=== PATIENT | female | born 1990 | race Caucasian/White ===

== ENCOUNTER → 2016-07-19 | Outpatient (CLI) | payer OTHER ==
[2016-07-19 09:41] LABS: CHLORIDE,CL 107 mmol/L (98-110); SODIUM,NA 138 mmol/L (136-146)
== END ==
LOC: MW.CHOBGYN 08:55
PROVIDERS: ATTEND Obstetrics & Gynecology
DX: R42 Dizziness and giddiness (principal)
CPT/HCPCS: 36415; 80048; 81001; 82950; 85027

== ENCOUNTER → 2016-08-13 | Outpatient (CLI) | payer OTHER | LOC: MW.CHOBGYN 08:53 | PROVIDERS: ATTEND Obstetrics & Gynecology | DX: Z34.90 Encounter for supervision of normal pregnancy, unspecified, unspecified trimester (principal) | CPT/HCPCS: 81003 ==

== ENCOUNTER → 2016-09-10 | Outpatient (CLI) | payer OTHER | LOC: MW.CHOBGYN 15:24 | PROVIDERS: ATTEND Obstetrics & Gynecology | DX: Z34.90 Encounter for supervision of normal pregnancy, unspecified, unspecified trimester (principal) | CPT/HCPCS: 81003 ==

== ENCOUNTER → 2016-09-24 | Outpatient (CLI) | payer OTHER | LOC: MW.CHOBGYN 15:40 | PROVIDERS: ATTEND Obstetrics & Gynecology | DX: Z34.90 Encounter for supervision of normal pregnancy, unspecified, unspecified trimester (principal) | CPT/HCPCS: 87081 ==

== ENCOUNTER → 2016-10-12 | Outpatient (CLI) | payer OTHER | LOC: MW.CHOBGYN 15:27 | PROVIDERS: ATTEND Obstetrics & Gynecology | DX: Z34.90 Encounter for supervision of normal pregnancy, unspecified, unspecified trimester (principal) | CPT/HCPCS: 81003 ==

== ENCOUNTER 2016-10-23 21:43 | Inpatient (IN) | payer OTHER ==
[2016-10-23] MEDS ORDERED: Sodium Chloride 0.9% 10 ML Syringe FLUSH PRN (22:27)
[2016-10-23] MEDS ORDERED: Lidocaine 1% 50 ML MDV INJECT PRN (22:27)
[2016-10-23] MEDS ORDERED: Misoprostol 200 MCG Tab PO PRN (22:27)
[2016-10-23] MEDS ORDERED: Nalbuphine 10 MG/1 ML Vial IVPUSH PRN (22:27)
[2016-10-23] MEDS ORDERED: Carboprost Tromethamine 250 MCG/1 ML Amp IM PRN (22:27)
[2016-10-23] MEDS ORDERED: Butorphanol 1 MG/ML SDV IVPUSH PRN (22:27)
[2016-10-23] MEDS ORDERED: Sodium Chloride 0.9% 2.5 ML Syringe FLUSH PRN (22:27)
[2016-10-23] MEDS ORDERED: Methylergonovine 0.2 MG/1 ML Amp IM PRN (22:27)
[2016-10-23] MEDS ORDERED: Water For Irrigation,Sterile 1,000 ML Container IRR PRN (22:27)
[2016-10-23] MEDS ORDERED: Oxytocin/Lactated Ringers 30 UNIT/500 ML BAG IV SCH (22:30)
[2016-10-23] MEDS: Lactated Ringers 1,000 ML IV SCH (22:47)
--- NOTE | 2016-10-23 23:24 | PCM.LDHP ---
L&D History of Present Illness - General Date of Service: 10/23/16 Admit Problem/Dx: Patient Status Order with Admit Dx/Problem 10/23/16 22:02 Patient Status [ADT] Routine 10/23/16 22:28 Patient Status [ADT] Routine Admission Diagnosis/Problem Admission Diagnosis/Problem - planned Source of Information: Patient History Limitations: Reports: No Limitations - History of Present Illness Improves with: Reports: None Worsens with: Reports: None Associated Symptoms: Reports: N - Related Data Allergies/Adverse Reactions: Allergies Allergy/AdvReac Type Severity Reaction Status Date / Time Penicillins Allergy Swelling Verified 09/09/13 09:59 Sulfa (Sulfonamide Allergy Redness Verified 09/09/13 09:59 Antibiotics) Home Medications: Home Meds Citalopram Hydrobromide [Celexa] 30 mg PO DAILY 09/09/13 [History] ClonazePAM [KlonoPIN] 0.5 mg PO BID PRN 09/09/13 [History] Norgestimate-Ethinyl Estradiol [Ortho Tri-Cyclen] 1 each PO DAILY 09/09/13 [ History] Past Medical History - Past Health History Medical/Surgical History: Denies 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: Social & Family History - Family History Family Medical History: Noncontributory - Tobacco Use Smoking Status *Q: Never Smoker Second Hand Smoke Exposure: No - Alcohol Use Days Per Week of Alcohol Use: 0 - Recreational Drug Use Recreational Drug Use: No H&P Review of Systems - Review of Systems: Review Of Systems: See Below General: Reports: No Symptoms HEENT: Reports: No Symptoms Pulmonary: Reports: No Symptoms Cardiovascular: Reports: No Symptoms Gastrointestinal: Reports: No Symptoms Genitourinary: Reports: No Symptoms Musculoskeletal: Reports: No Symptoms Skin: Reports: No Symptoms Psychiatric: Reports: No Symptoms Neurological: Reports: No Symptoms Hematologic/Lymphatic: Reports: No Symptoms Immunologic: Reports: No Symptoms L&D Exam - Exam Exam: See Below - Vital Signs Weight: 67.9 kg - OB Specific Fundal Height In cm: 38 Contraction Intensity: Mild to Moderate Movement: Active Heart Tones: Present Presentation: Vertex - Escobar Score Escobar Score Cervix Position: Midposition Escobar Score Consistency: Soft Escobar Score Effacement: 31-50% Escobar Score Dilation: 1-2 cm - Patient Data Lab Results last 24 hrs: Laboratory Results - last 24 hr 10/23/16 10/23/16 Range/Units 22:42 22:42 WBC 12.36 H (4.0-11.0) K/uL RBC 4.19 L (4.30-5.90) M/uL Hgb 12.2 (12.0-16.0) g/dL Hct 37.7 (36.0-46.0) % MCV 90.0 (80.0-98.0) fL MCH 29.1 (27.0-32.0) pg MCHC 32.4 (31.0-37.0) g/dL RDW Std Deviation 44.1 (28.0-62.0) fl RDW Coeff of Jayro 14 (11.0-15.0) % Plt Count 268 (150-400) K/uL MPV 11.30 (7.40-12.00) fL Nucleated RBC % 0.0 /100WBC Nucleated RBCs # 0 K/uL Blood Type O POSITIVE Result Diagrams: 10/23/16 22:42 Problem List Initiated/Reviewed/Updated: Yes Orders Last 24hrs: Active Orders 24 hr Category Date Time Status Patient Status [ADT] Routine ADT 10/23/16 22:02 Active Patient Status [ADT] Routine ADT 10/23/16 22:28 Active Heart Tones [RC] CONTINUOUS Care 10/23/16 22:28 Active Non Stress Test [RC] PER UNIT ROUTINE Care 10/23/16 22:02 Active Non Stress Test [RC] PER UNIT ROUTINE Care 10/23/16 22:28 Active May Shower [RC] ASDIRECTED Care 10/23/16 22:28 Active Notify Provider [RC] PRN Care 10/23/16 22:28 Active Up ad Kelsie [RC] ASDIRECTED Care 10/23/16 22:02 Active Up ad Kelsie [RC] ASDIRECTED Care 10/23/16 22:28 Active Vaginal Exam [RC] Click To Edit Care 10/23/16 22:02 Active Vaginal Exam [RC] PRN Care 10/23/16 22:28 Active Vital Signs [RC] PER UNIT ROUTINE Care 10/23/16 22:02 Active Vital Signs [RC] PER UNIT ROUTINE Care 10/23/16 22:28 Active Clear Liquid Diet [DIET] Diet 10/24/16 Breakfast Active AMNISURE RUPTURE MEMBRAN [BF] Routine Lab 10/23/16 21:46 Ordered TYPE AND SCREEN [BBK] Routine Lab 10/23/16 22:42 Results Butorphanol [Stadol] Med 10/23/16 22:27 Active 1 mg IVPUSH Q1H PRN Carboprost Tromethamine [Hemabate DS] Med 10/23/16 22:27 Active 250 mcg IM ASDIRECTED PRN Lactated Ringers [Ringers, Lactated] 1,000 ml Med 10/23/16 22:30 Active IV ASDIRECTED Lidocaine 1% [Xylocaine 1%] Med 10/23/16 22:27 Active 50 ml INJECT .ONCE PRN Methylergonovine [Methergine] Med 10/23/16 22:27 Active 0.2 mg IM ASDIRECTED PRN Misoprostol [Cytotec] Med 10/23/16 22:27 Active 200 mcg PO .ONCE PRN Nalbuphine [Nubain] Med 10/23/16 22:27 Active 10 mg IVPUSH Q1H PRN Sodium Chloride 0.9% [Saline Flush] Med 10/23/16 22:27 Active 10 ml FLUSH ASDIRECTED PRN Sodium Chloride 0.9% [Saline Flush] Med 10/23/16 22:27 Active 2.5 ml FLUSH ASDIRECTED PRN Water For Irrigation,Sterile [Sterile Water for Med 10/23/16 22:27 Active Irrigation] 1,000 ml IRR ASDIRECTED PRN Scalp Electrode [WOMSER] Per Unit Routine Oth 10/23/16 22:28 Ordered Peripheral IV Insertion Adult [OM.PC] Routine Oth 10/23/16 22:28 Ordered Resuscitation Status Routine Resus Stat 10/23/16 22:02 Ordered Medication Orders Butorphanol Tartrate (Stadol) 1 mg IVPUSH Q1H PRN PRN Reason: Pain Carboprost Tromethamine (Hemabate Ds) 250 mcg IM ASDIRECTED PRN PRN Reason: Post Hemorrhage Lactated Ringer's (Ringers, Lactated) 1,000 mls @ 150 mls/hr IV ASDIRECTED JORGE Last Admin: 10/23/16 22:47 Dose: 150 mls/hr Lidocaine HCl (Xylocaine 1%) 50 ml INJECT .ONCE PRN PRN Reason: Laceration repair Methylergonovine Maleate (Methergine) 0.2 mg IM ASDIRECTED PRN PRN Reason: Post Hemorrhage Misoprostol (Cytotec) 200 mcg PO .ONCE PRN PRN Reason: Post Hemorrhage Nalbuphine HCl (Nubain) 10 mg IVPUSH Q1H PRN PRN Reason: Pain (severe 7-10) Stop: 10/24/16 00:28 Sodium Chloride (Saline Flush) 10 ml FLUSH ASDIRECTED PRN PRN Reason: Keep Vein Open Sodium Chloride (Saline Flush) 2.5 ml FLUSH ASDIRECTED PRN PRN Reason: Keep Vein Open Sterile Water (Sterile Water For Irrigation) 1,000 ml IRR ASDIRECTED PRN PRN Reason: delivery Assessment/Plan Comment:: Term SROM admit.
[2016-10-24] MEDS: Lactated Ringers 1,000 ML IV SCH ×3 (02:30→11:12)
[2016-10-24] MEDS ORDERED: fentaNYL 100 MCG/2 ML SDV ONE (04:14)
[2016-10-24] MEDS ORDERED: Ropivacaine HCl/PF 0 ML ONE (04:14)
--- NOTE | 2016-10-24 04:52 | PCM.PREANE ---
Preanesthetic Assessment - Anesthesia/Transfusion/Family Hx Anesthesia History: Prior Anesthesia Without Reaction (Epidural only - no GA) Family History of Anesthesia Reaction: No Transfusion History: No Prior Transfusion(s) - Review of Systems General: No Symptoms Pulmonary: No Symptoms Cardiovascular: No Symptoms Gastrointestinal: No symptoms Neurological: No Symptoms Other: Reports: None - Physical Assessment NPO Status Date: 10/24/16 NPO Status Time: 04:49 (sips/chips) Blood Pressure: 106/52 Height: 5 ft 7.5 in Weight: 149 lb 11.102 oz ASA Class: 1 Mental Status: Alert & Oriented x3 Airway Class: Mallampati = 2 Dentition: Reports: Normal Dentition Thyro-Mental Finger Breadths: 3 Mouth Opening Finger Breadths: 3 ROM/Head Extension: Full Lungs: Clear to auscultation, Normal respiratory effort Cardiovascular: Regular Rate, Regular Rhythm - Lab Values: Laboratory Last Values WBC 12.36 K/uL (4.0-11.0) H 10/23/16 22:42 RBC 4.19 M/uL (4.30-5.90) L 10/23/16 22:42 Hgb 12.2 g/dL (12.0-16.0) 10/23/16 22:42 Hct 37.7 % (36.0-46.0) 10/23/16 22:42 MCV 90.0 fL (80.0-98.0) 10/23/16 22:42 MCH 29.1 pg (27.0-32.0) 10/23/16 22:42 MCHC 32.4 g/dL (31.0-37.0) 10/23/16 22:42 RDW Std Deviation 44.1 fl (28.0-62.0) 10/23/16 22:42 RDW Coeff of Jayro 14 % (11.0-15.0) 10/23/16 22:42 Plt Count 268 K/uL (150-400) 10/23/16 22:42 MPV 11.30 fL (7.40-12.00) 10/23/16 22:42 Nucleated RBC % 0.0 /100WBC 10/23/16 22:42 Nucleated RBCs # 0 K/uL 10/23/16 22:42 Blood Type O POSITIVE 10/23/16 22:42 Antibody Screen NEGATIVE 10/23/16 22:42 - Allergies Allergies/Adverse Reactions: Allergies Allergy/AdvReac Type Severity Reaction Status Date / Time Penicillins Allergy Swelling Verified 09/09/13 09:59 Sulfa (Sulfonamide Allergy Redness Verified 09/09/13 09:59 Antibiotics) - Blood Blood Available: No Product(s) Available: None - Anesthesia Plan Free Text/Narrative:: Labor Epidural - Acknowledgements Anesthesia Type Planned: Epidural Pt an Appropriate Candidate for the Planned Anesthesia: Yes Alternatives and Risks of Anesthesia Discussed w Pt/Guardian: Yes Pt/Guardian Understands and Agrees with Anesthesia Plan: Yes PreAnesthesia Questionnaire - Past Health History Medical/Surgical History: Denies 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 History: Reports: Other (See Below) (pt states she was told with her last epidural that 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) - SUBSTANCE USE Smoking Status *Q: Never Smoker Second Hand Smoke Exposure: No Days Per Week of Alcohol Use: 0 Recreational Drug Use History: No - HOME MEDS Home Medications: Home Meds Citalopram Hydrobromide [Celexa] 30 mg PO DAILY 09/09/13 [History] ClonazePAM [KlonoPIN] 0.5 mg PO BID PRN 09/09/13 [History] Norgestimate-Ethinyl Estradiol [Ortho Tri-Cyclen] 1 each PO DAILY 09/09/13 [ History] - CURRENT (IN HOUSE) MEDS Current Meds: Current Medications Butorphanol Tartrate (Stadol) 1 mg IVPUSH Q1H PRN PRN Reason: Pain Carboprost Tromethamine (Hemabate Ds) 250 mcg IM ASDIRECTED PRN PRN Reason: Post Hemorrhage Lactated Ringer's (Ringers, Lactated) 1,000 mls @ 150 mls/hr IV ASDIRECTED JORGE Last Admin: 10/24/16 04:25 Dose: 150 mls/hr Lidocaine HCl (Xylocaine 1%) 50 ml INJECT .ONCE PRN PRN Reason: Laceration repair Methylergonovine Maleate (Methergine) 0.2 mg IM ASDIRECTED PRN PRN Reason: Post Hemorrhage Misoprostol (Cytotec) 200 mcg PO .ONCE PRN PRN Reason: Post Hemorrhage Sodium Chloride (Saline Flush) 10 ml FLUSH ASDIRECTED PRN PRN Reason: Keep Vein Open Sodium Chloride (Saline Flush) 2.5 ml FLUSH ASDIRECTED PRN PRN Reason: Keep Vein Open Sterile Water (Sterile Water For Irrigation) 1,000 ml IRR ASDIRECTED PRN PRN Reason: delivery Discontinued Medications Fentanyl (Sublimaze) Confirm Administered Dose 100 mcg .ROUTE .STK-MED ONE Stop: 10/24/16 04:15 Oxytocin/Lactated Ringer's (Pitocin In Lr 30 Units/500 Ml) 30 unit in 500 mls @ 999 mls/hr IV TITRATE JORGE; 999 MUNITS/MIN PRN Reason: Protocol Stop: 10/23/16 23:01 Ropivacaine (Naropin 0.2%) Confirm Administered Dose 100 mls @ as directed .ROUTE .STK-MED ONE Stop: 10/24/16 04:15 Nalbuphine HCl (Nubain) 10 mg IVPUSH Q1H PRN PRN Reason: Pain (severe 7-10) Stop: 10/24/16 00:28
--- NOTE | 2016-10-24 08:20 | PCM.PNLD ---
Labor Progress Note - VS & Meds Vital Signs: Last Vital Signs Temp Pulse Resp BP 106/52 L 10/24/16 04:52 Pulse Ox Active Medications: Current Medications Butorphanol Tartrate (Stadol) 1 mg IVPUSH Q1H PRN PRN Reason: Pain Carboprost Tromethamine (Hemabate Ds) 250 mcg IM ASDIRECTED PRN PRN Reason: Post Hemorrhage Lactated Ringer's (Ringers, Lactated) 1,000 mls @ 150 mls/hr IV ASDIRECTED JORGE Last Admin: 10/24/16 04:25 Dose: 150 mls/hr Lidocaine HCl (Xylocaine 1%) 50 ml INJECT .ONCE PRN PRN Reason: Laceration repair Methylergonovine Maleate (Methergine) 0.2 mg IM ASDIRECTED PRN PRN Reason: Post Hemorrhage Misoprostol (Cytotec) 200 mcg PO .ONCE PRN PRN Reason: Post Hemorrhage Sodium Chloride (Saline Flush) 10 ml FLUSH ASDIRECTED PRN PRN Reason: Keep Vein Open Sodium Chloride (Saline Flush) 2.5 ml FLUSH ASDIRECTED PRN PRN Reason: Keep Vein Open Sterile Water (Sterile Water For Irrigation) 1,000 ml IRR ASDIRECTED PRN PRN Reason: delivery Discontinued Medications Fentanyl (Sublimaze) Confirm Administered Dose 100 mcg .ROUTE .STK-MED ONE Stop: 10/24/16 04:15 Oxytocin/Lactated Ringer's (Pitocin In Lr 30 Units/500 Ml) 30 unit in 500 mls @ 999 mls/hr IV TITRATE JORGE; 999 MUNITS/MIN PRN Reason: Protocol Stop: 10/23/16 23:01 Ropivacaine (Naropin 0.2%) Confirm Administered Dose 100 mls @ as directed .ROUTE .STK-MED ONE Stop: 10/24/16 04:15 Nalbuphine HCl (Nubain) 10 mg IVPUSH Q1H PRN PRN Reason: Pain (severe 7-10) Stop: 10/24/16 00:28 - Uterine Contractions Uterine Monitoring Mode: External [place] Contraction Intensity: Moderate Uterine Resting Tone: Soft - Monitoring Monitor Mode: External Ultrasound Heart Rate (FHR) Variability: Minimal (0-5 bpm) Accelerations: Present, 15x15 Decelerations: None Strip Review: Category I - Vaginal Exam Dilation (cm): 4 Effacement (Percent): 70 Station: -2 Cervical Position: Anterior - Labor Progress (Free Text) Labor Progress: Will Start the pt on pitocin aggumentation as per protocol.
[2016-10-24] MEDS ORDERED: Ropivacaine HCl/PF 100 ML ONE (08:58)
[2016-10-24] MEDS ORDERED: Terbutaline 1 MG/ML SDV SUBCUT PRN (09:03)
[2016-10-24] MEDS ORDERED: Oxytocin/Lactated Ringers 30 UNIT/500 ML BAG IV SCH (09:15)
[2016-10-24] MEDS ORDERED: oxyCODONE 5 MG Tab PO PRN (12:23)
[2016-10-24] MEDS ORDERED: Lanolin 100% Cream 7 GM Tube TOP PRN (12:23)
[2016-10-24] MEDS ORDERED: Witch Hazel Medicated Pads 40/Jar TOP PRN (12:23)
[2016-10-24] MEDS ORDERED: Ibuprofen 800 MG Tab PO PRN (12:23)
[2016-10-24] MEDS ORDERED: Docusate Sodium 100 MG Cap PO PRN (12:23)
[2016-10-24] MEDS ORDERED: Benzocaine/Menthol 20%-0.5% Spray 78 GM Cannister TOP PRN (12:23)
[2016-10-24] MEDS ORDERED: Acetaminophen 500 MG Tab PO PRN ×2 (12:23)
[2016-10-24] MEDS ORDERED: Ibuprofen 400 MG Tab PO PRN (12:23)
[2016-10-24] MEDS ORDERED: Bisacodyl 10 MG Supp RECTAL PRN (12:23)
--- NOTE | 2016-10-24 12:56 | OR ---
SURGEON: Santiago Combs MD DATE OF PROCEDURE: 10/24/2016 Mrs. Montelongo is 26 years old. She is para 1-0-0-1. She is followed in our clinic in this primarily by me. She had no complication. Her GBS status was negative. She was admitted last night with spontaneous rupture of the membrane that was confirmed at the time of the admission. She was dilated to 1 cm, and she was 70% vertex and -3. The patient started labor on her own and she initially started to progress slowly. Eventually, she became 3, 90% vertex, -3. She had epidural anesthesia for labor analgesia and the patient was continued to progress without aid, without augmentation, or stimulation. She became complete complete around 11:30 of 10/24 and she was able to accomplish normal spontaneous vaginal delivery of a female fetus. score reported to be 8 and 9 and the weight is not available. The placenta delivered spontaneous, complete, and intact without any problem. There was no perineal tear, no perineal laceration, and there is no labial laceration. There was no need for episiotomy. The perineum was intact. Estimated blood loss was 250 to 300 mL. No complication in this . FLORENTIN / SAUL /[id number]
--- NOTE | 2016-10-24 16:44 | PCM48HPAN ---
Post Anesthesia Note - EVALUATION WITHIN 48HRS OF ANESTHETIC Vital Signs in Normal Range: Yes Patient Participated in Evaluation: Yes Respiratory Function Stable: Yes Airway Patent: Yes Cardiovascular Function Stable: Yes Hydration Status Stable: Yes Pain Control Satisfactory: Yes Nausea and Vomiting Control Satisfactory: Yes Mental Status Recovered: Yes
[2016-10-25 09:03] VITALS: BP 101/61
--- NOTE | 2016-10-25 11:54 | PCM.PNPP ---
- General Info Date of Service: 10/25/16 Functional Status: Reports: pain controlled - Review of Systems General: Reports: No Symptoms HEENT: Reports: no symptoms Pulmonary: Reports: no symptoms Cardiovascular: Reports: No Symptoms Gastrointestinal: Reports: No symptoms Genitourinary: Reports: no symptoms Musculoskeletal: Reports: no symptoms Skin: Reports: no symptoms Neurological: Reports: No Symptoms Psychiatric: Reports: no symptoms - General Info Date of Service: 10/25/16 - Patient Data Vital Signs - most recent: Last Vital Signs Temp 36.8 C 10/25/16 07:30 Pulse 72 10/25/16 07:30 Resp 16 10/25/16 07:30 BP 101/61 10/25/16 07:30 Pulse Ox 97 10/25/16 07:30 Weight - most recent: 67.9 kg Lab Results - last 24 hrs: Laboratory Results - last 24 hr 10/25/16 Range/Units 06:05 Hgb 9.9 L (12.0-16.0) g/dL Hct 30.5 L (36.0-46.0) % Med Orders - Current: Current Medications Acetaminophen (Tylenol Extra Strength) 500 mg PO Q4H PRN PRN Reason: Pain Acetaminophen (Tylenol Extra Strength) 1,000 mg PO Q4H PRN PRN Reason: Pain Benzocaine/Menthol (Dermoplast Pain Relief 20%-0.5% [place]) 78 gm TOP ASDIRECTED PRN PRN Reason: Perineal Comfort Measure Bisacodyl (Dulcolax) 10 mg RECTAL .ONCE PRN PRN Reason: Constipation Butorphanol Tartrate (Stadol) 1 mg IVPUSH Q1H PRN PRN Reason: Pain Carboprost Tromethamine (Hemabate Ds) 250 mcg IM ASDIRECTED PRN PRN Reason: Post Hemorrhage Docusate Sodium (Colace) 100 mg PO BID PRN PRN Reason: Constipation Emollient Ointment (Lansinoh Hpa) 0 gm TOP ASDIRECTED PRN PRN Reason: Sore Nipples Lactated Ringer's (Ringers, Lactated) 1,000 mls @ 150 mls/hr IV ASDIRECTED JORGE Last Admin: 10/24/16 11:12 Dose: 150 mls/hr Oxytocin/Lactated Ringer's (Pitocin In Lr 30 Units/500 Ml) 30 unit in 500 mls @ 2 mls/hr IV TITRATE JORGE; 2 MUNITS/MIN PRN Reason: Protocol Last Admin: 10/24/16 12:39 Dose: 500 munits/min, 500 mls/hr Ibuprofen (Motrin) 400 mg PO Q4H PRN PRN Reason: Pain Ibuprofen (Motrin) 800 mg PO Q6H PRN PRN Reason: Pain Last Admin: 10/24/16 20:30 Dose: 800 mg Lidocaine HCl (Xylocaine 1%) 50 ml INJECT .ONCE PRN PRN Reason: Laceration repair Methylergonovine Maleate (Methergine) 0.2 mg IM ASDIRECTED PRN PRN Reason: Post Hemorrhage Misoprostol (Cytotec) 200 mcg PO .ONCE PRN PRN Reason: Post Hemorrhage Oxycodone HCl (Oxycodone) 5 mg PO Q2H PRN PRN Reason: Pain Sodium Chloride (Saline Flush) 10 ml FLUSH ASDIRECTED PRN PRN Reason: Keep Vein Open Sodium Chloride (Saline Flush) 2.5 ml FLUSH ASDIRECTED PRN PRN Reason: Keep Vein Open Sterile Water (Sterile Water For Irrigation) 1,000 ml IRR ASDIRECTED PRN PRN Reason: delivery Last Admin: 10/24/16 12:39 Dose: 1,000 ml Terbutaline Sulfate (Brethine) 0.25 mg SUBCUT ASDIRECTED PRN PRN Reason: Tacysystole Witch Kamla (Tucks) 1 pad TOP ASDIRECTED PRN PRN Reason: comfort care Discontinued Medications Fentanyl (Sublimaze) Confirm Administered Dose 100 mcg .ROUTE .STK-MED ONE Stop: 10/24/16 04:15 Last Admin: 10/25/16 09:09 Dose: Not Given Oxytocin/Lactated Ringer's (Pitocin In Lr 30 Units/500 Ml) 30 unit in 500 mls @ 999 mls/hr IV TITRATE JORGE; 999 MUNITS/MIN PRN Reason: Protocol Stop: 10/23/16 23:01 Ropivacaine (Naropin 0.2%) Confirm Administered Dose 100 mls @ as directed .ROUTE .STK-MED ONE Stop: 10/24/16 04:15 Last Admin: 10/25/16 09:09 Dose: Not Given Ropivacaine (Naropin 0.2%) Confirm Administered Dose 100 mls @ as directed .ROUTE .STK-MED ONE Stop: 10/24/16 08:59 Last Admin: 10/25/16 09:09 Dose: Not Given Nalbuphine HCl (Nubain) 10 mg IVPUSH Q1H PRN PRN Reason: Pain (severe 7-10) Stop: 10/24/16 00:28 - Infant Interaction Support Person: - Recovery Exam Fundal Tone: Firm Fundal Level: 1 Fingerbreadths Below Umbilicus Fundal Placement: Midline Lochia Amount: Small Lochia Color: Rubra/Red Perineum Description: Intact, Minimal Bruising/Swelling Episiotomy/Laceration: None Bladder Status: Voiding Urinary Elimination: Voided - Exam General: alert, oriented HEENT: Pupils equal Neck: supple Lungs: Clear to auscultation, Normal respiratory effort Cardiovascular: Regular Rate, Regular Rhythm Abdomen: bowel sounds present, soft, no tenderness, no distension Extremities: no edema Skin: warm, dry, intact Wound/Incisions: healing well Neurological: no new focal deficit Psy/Mental Status: alert, normal affect, normal mood - Problem List Review Problem List Initiated/Reviewed/Updated: Yes - My Orders Last 24 Hours: My Active Orders 10/24/16 12:23 Patient Status [ADT] Routine May Shower [RC] ASDIRECTED Up ad Kelsie [RC] ASDIRECTED Vital Signs [RC] PER UNIT ROUTINE Acetaminophen [Tylenol Extra Strength] 1,000 mg PO Q4H PRN Acetaminophen [Tylenol Extra Strength] 500 mg PO Q4H PRN Benzocaine/Menthol [Dermoplast Pain Relief 20%-0.5% [place]] 78 gm TOP ASDIRECTED PRN Bisacodyl [Dulcolax] 10 mg RECTAL .ONCE PRN Docusate Sodium [Colace] 100 mg PO BID PRN Ibuprofen [Motrin] 400 mg PO Q4H PRN Ibuprofen [Motrin] 800 mg PO Q6H PRN Lanolin [Lansinoh HPA] See Dose Instructions TOP ASDIRECTED PRN Witch Kamla [Tucks] 1 pad TOP ASDIRECTED PRN oxyCODONE 5 mg PO Q2H PRN Assess Lochia [WOMSER] Per Unit Routine Assess Uterine Involution [WOMSER] Per Unit Routine Peripheral IV Discontinue [OM.PC] Routine 10/25/16 Lunch Regular Diet [DIET] - Plan Plan:: Term SROM admit.
--- NOTE | 2016-10-25 11:55 | PCM.DCSUM1 ---
Discharge Summary - Discharge Data Discharge Date: 10/25/16 Discharge Disposition: Home, Self-Care 01 Condition: Good - Patient Instructions Diet: Usual Diet as Tolerated Activity: As Tolerated Showering/Bathing: May Shower Notify Provider of: Fever, Increased Pain, Swelling and Redness, Nausea and/or Vomiting - Discharge Plan Home Medications: Home Meds Citalopram Hydrobromide [Celexa] 30 mg PO DAILY 09/09/13 [History] ClonazePAM [KlonoPIN] 0.5 mg PO BID PRN 09/09/13 [History] Norgestimate-Ethinyl Estradiol [Ortho Tri-Cyclen] 1 each PO DAILY 09/09/13 [ History] Referrals: [facility] [Outside] Santiago Combs MD [Physician] - 12/06/16 9:30 am - General Info Date of Service: 10/25/16 Functional Status: Reports: pain controlled - Review of Systems General: Reports: No Symptoms HEENT: Reports: no symptoms Pulmonary: Reports: no symptoms Cardiovascular: Reports: No Symptoms Gastrointestinal: Reports: No symptoms Genitourinary: Reports: no symptoms Musculoskeletal: Reports: no symptoms Skin: Reports: no symptoms Neurological: Reports: No Symptoms Psychiatric: Reports: no symptoms - Patient Data Vitals - Most Recent: Last Vital Signs Temp 36.8 C 10/25/16 07:30 Pulse 72 10/25/16 07:30 Resp 16 10/25/16 07:30 BP 101/61 10/25/16 07:30 Pulse Ox 97 10/25/16 07:30 Weight - Most Recent: 67.9 kg Lab Results - Last 24 hrs: Laboratory Results - last 24 hr 10/25/16 Range/Units 06:05 Hgb 9.9 L (12.0-16.0) g/dL Hct 30.5 L (36.0-46.0) % Med Orders - Current: Current Medications Acetaminophen (Tylenol Extra Strength) 500 mg PO Q4H PRN PRN Reason: Pain Acetaminophen (Tylenol Extra Strength) 1,000 mg PO Q4H PRN PRN Reason: Pain Benzocaine/Menthol (Dermoplast Pain Relief 20%-0.5% [place]) 78 gm TOP ASDIRECTED PRN PRN Reason: Perineal Comfort Measure Bisacodyl (Dulcolax) 10 mg RECTAL .ONCE PRN PRN Reason: Constipation Butorphanol Tartrate (Stadol) 1 mg IVPUSH Q1H PRN PRN Reason: Pain Carboprost Tromethamine (Hemabate Ds) 250 mcg IM ASDIRECTED PRN PRN Reason: Post Hemorrhage Docusate Sodium (Colace) 100 mg PO BID PRN PRN Reason: Constipation Emollient Ointment (Lansinoh Hpa) 0 gm TOP ASDIRECTED PRN PRN Reason: Sore Nipples Lactated Ringer's (Ringers, Lactated) 1,000 mls @ 150 mls/hr IV ASDIRECTED JORGE Last Admin: 10/24/16 11:12 Dose: 150 mls/hr Oxytocin/Lactated Ringer's (Pitocin In Lr 30 Units/500 Ml) 30 unit in 500 mls @ 2 mls/hr IV TITRATE JORGE; 2 MUNITS/MIN PRN Reason: Protocol Last Admin: 10/24/16 12:39 Dose: 500 munits/min, 500 mls/hr Ibuprofen (Motrin) 400 mg PO Q4H PRN PRN Reason: Pain Ibuprofen (Motrin) 800 mg PO Q6H PRN PRN Reason: Pain Last Admin: 10/24/16 20:30 Dose: 800 mg Lidocaine HCl (Xylocaine 1%) 50 ml INJECT .ONCE PRN PRN Reason: Laceration repair Methylergonovine Maleate (Methergine) 0.2 mg IM ASDIRECTED PRN PRN Reason: Post Hemorrhage Misoprostol (Cytotec) 200 mcg PO .ONCE PRN PRN Reason: Post Hemorrhage Oxycodone HCl (Oxycodone) 5 mg PO Q2H PRN PRN Reason: Pain Sodium Chloride (Saline Flush) 10 ml FLUSH ASDIRECTED PRN PRN Reason: Keep Vein Open Sodium Chloride (Saline Flush) 2.5 ml FLUSH ASDIRECTED PRN PRN Reason: Keep Vein Open Sterile Water (Sterile Water For Irrigation) 1,000 ml IRR ASDIRECTED PRN PRN Reason: delivery Last Admin: 10/24/16 12:39 Dose: 1,000 ml Terbutaline Sulfate (Brethine) 0.25 mg SUBCUT ASDIRECTED PRN PRN Reason: Tacysystole Witch Kamla (Tucks) 1 pad TOP ASDIRECTED PRN PRN Reason: comfort care Discontinued Medications Fentanyl (Sublimaze) Confirm Administered Dose 100 mcg .ROUTE .STK-MED ONE Stop: 10/24/16 04:15 Last Admin: 10/25/16 09:09 Dose: Not Given Oxytocin/Lactated Ringer's (Pitocin In Lr 30 Units/500 Ml) 30 unit in 500 mls @ 999 mls/hr IV TITRATE JORGE; 999 MUNITS/MIN PRN Reason: Protocol Stop: 10/23/16 23:01 Ropivacaine (Naropin 0.2%) Confirm Administered Dose 100 mls @ as directed .ROUTE .[facility]-MED ONE Stop: 10/24/16 04:15 Last Admin: 10/25/16 09:09 Dose: Not Given Ropivacaine (Naropin 0.2%) Confirm Administered Dose 100 mls @ as directed .ROUTE .[facility]-MED ONE Stop: 10/24/16 08:59 Last Admin: 10/25/16 09:09 Dose: Not Given Nalbuphine HCl (Nubain) 10 mg IVPUSH Q1H PRN PRN Reason: Pain (severe 7-10) Stop: 10/24/16 00:28 - Exam General: Reports: alert, oriented HEENT: Reports: Pupils equal, Pupils reactive, EOMI, Mucous membr. moist/pink Neck: Reports: supple Lungs: Reports: Clear to auscultation, Normal respiratory effort Cardiovascular: Reports: Regular Rate, Regular Rhythm Abdomen: Reports: bowel sounds present, soft, no tenderness, no distension (Female) Exam: Normal External Exam, Normal Speculum Exam, Normal Bimanual Exam Rectal (Female) Exam: Normal Exam, Normal Rectal Tone Back Exam: Reports: Normal Inspection, Full Range of Motion Extremities: Reports: no edema, normal pulses Skin: Reports: warm, dry, intact Wound/Incisions: Reports: healing well Neurological: Reports: no new focal deficit Psy/Mental Status: Reports: alert, normal affect, normal mood *Q Meaningful Use (DIS) - VTE *Q VTE Criteria *Q: - Stroke *Q Stroke Criteria *Q: - AMI *Q AMI Criteria *Q:
== END 2016-10-25 14:45 | disposition home or self-care (01) | DRG 775 ==
LOC: MW.OB 21:43 → MW.OBCHECK 21:43 → MW.OB 22:28 → OBSVTOIN 10-24 12:10 → MW.OB 10-24 16:03
PROVIDERS: ADMIT Obstetrics & Gynecology; ATTEND Obstetrics & Gynecology
PROC: 10E0XZZ Delivery of Products of Conception, External Approach (ICD-10-PCS; principal; 2016-10-24)
DX: O42.02 Full-term premature rupture of membranes, onset of labor within 24 hours of rupture (principal); Z3A.39 39 weeks gestation of pregnancy; Z37.0 Single live birth
CPT/HCPCS: 01967; 36415; 59025; 85014; 85018; 85027; 86850; 86900; 86901; A9270-GY; J7120

== ENCOUNTER 2022-01-04 20:56 | Emergency (ER) | payer OTHER ==
[2022-01-04] MEDS ORDERED: Ibuprofen 600 MG Tab PO ONE (22:55)
[2022-01-04 23:36] LABS: CORONAVIRUS COVID-19 NAA POSITIVE (NEGATIVE); INFLUENZA A NAA NEGATIVE (NEGATIVE); INFLUENZA B NAA NEGATIVE (NEGATIVE); RESPIRATORY SYNCYTIAL VIR NAA NEGATIVE (NEGATIVE)
[2022-01-05 00:26] VITALS: BP 110/73; PULSE 96
== END 2022-01-05 00:26 | disposition home or self-care (01) ==
LOC: MW.ED 20:56
DX: U07.1 COVID-19 (principal); Z88.0 Allergy status to penicillin; Z88.2 Allergy status to sulfonamides; Z79.899 Other long term (current) drug therapy
CPT/HCPCS: 0241U; 36415; 81001; 86308; 87651; 99284; A9270; 99283

== ENCOUNTER 2022-10-14 08:09 | Emergency (ER) | payer BC ==
[2022-10-14 08:28] VITALS: BP 128/65; PULSE 70
== END 2022-10-14 12:24 | disposition home or self-care (01) ==
LOC: MW.ED 08:09
DX: M25.531 Pain in right wrist (principal); Z86.16 Personal history of COVID-19; Z88.0 Allergy status to penicillin; Z88.2 Allergy status to sulfonamides
CPT/HCPCS: 29125; 73100-26-RT; 73100-RT; 73110-26-RT; 73110-RT; 99282; 99283

== ENCOUNTER 2025-04-29 00:33 | Emergency (ER) | payer SELFPAY ==
[2025-04-29 01:48] VITALS: BP 106/69; PULSE 78
== END 2025-04-29 01:48 | disposition home or self-care (01) ==
LOC: MW.ED 00:33
DX: H69.92 Unspecified Eustachian tube disorder, left ear (principal); Z88.0 Allergy status to penicillin; Z88.2 Allergy status to sulfonamides; Z86.16 Personal history of COVID-19
CPT/HCPCS: 99283; A9270